=== PATIENT | male | born 1965 | race Caucasian/White ===

== ENCOUNTER → 2017-07-24 | Outpatient (CLI) | payer OTHER | LOC: BMCIMAGING 12:17 | PROVIDERS: ATTEND Orthopaedic Surgery Hand Surgery | DX: S69.92XA Unspecified injury of left wrist, hand and finger(s), initial encounter (principal); X58.XXXA Exposure to other specified factors, initial encounter ==

== ENCOUNTER → 2017-08-05 | Outpatient (CLI) | payer OTHER | LOC: BMCIMAGING 13:07 | PROVIDERS: ATTEND Orthopaedic Surgery Hand Surgery | DX: R93.6 Abnormal findings on diagnostic imaging of limbs (principal) ==